=== PATIENT | female | born 1945 | race Caucasian/White ===

== ENCOUNTER 2018-07-14 13:33 | Outpatient (CLI) | payer OTHER | END 2018-07-14 20:39 | disposition home or self-care (01) | LOC: SRD 13:33 | PROVIDERS: ATTEND Internal Medicine | DX: Z01.818 Encounter for other preprocedural examination (principal); I51.7 Cardiomegaly; I70.90 Unspecified atherosclerosis; M47.814 Spondylosis without myelopathy or radiculopathy, thoracic region; M41.84 Other forms of scoliosis, thoracic region | CPT/HCPCS: 71046-TC ==

== ENCOUNTER 2018-08-23 16:47 | Outpatient (CLI) | payer OTHER | END 2018-08-23 17:56 | disposition home or self-care (01) | LOC: SRD 16:47 | PROVIDERS: ATTEND Internal Medicine | DX: I70.0 Atherosclerosis of aorta (principal); I51.7 Cardiomegaly | CPT/HCPCS: 71046-TC ==